=== PATIENT | female | born 1990 | race Caucasian/White ===

== ENCOUNTER → 2017-01-29 | Outpatient (CLI) | payer OTHER ==
--- NOTE | ~2017-01-29 | US98 ---
[facility] A Service of [facility] RADIOLOGY TEXT RESULTS PATIENT: DANIEL MARC LOCATION: [facility] : [birth year] UNIT #: [id number] AGE: [address]: LEONEL GERMAIN MD SEX: F ORDER DR: [id number] [address] [address] [id number] O MR#: [id number] Acc #: [id number] NAME: DANIEL MARC : 1990 SEX: F STUDY DATE/TIME: 01/29/2017 12:47 UNIT: [facility] ROOM: STUDY DESCRIPTION: US Pelvic Non-OB Complete Attending Physician: Gabrielle Germain M.D. Referring Physician: Gabrielle Germain M.D. Ordering Physician: Gabrielle Germain M.D. Primary Care Physician: Gabrielle Germain M.D. MEDICAL IMAGING REPORT This report is preliminary unless electronic signature is present. EXAM Ultrasound pelvis, 01/29/2017. HISTORY 26-year-old female referred for a history of intermittent left side pelvic pain and irregular menses. Symptoms for 1-2 years. TECHNIQUE Pelvic ultrasound examination was performed transabdominally and endovaginally. FINDINGS Retroverted uterus is normal in size and appearance measuring 8.5 x 4.6 x 5.0 cm. No uterine mass is demonstrated, and premenopausal endometrium is normal. Both ovaries are normal in size and appearance. Right ovary 2.7 x 1.8 x 4.6 cm. Left ovary 3.3 x 1.9 x 4.5 cm. Normal physiologic follicles are present within each ovary, and the dominant benign physiologic cyst in the left ovary measures 2.4 cm. No suspicious adnexal region mass or significant free pelvic fluid. Limited Doppler evaluation documents bilateral ovary blood flow. IMPRESSION Normal pelvic ultrasound examination. Dictated by... Castro Horn M.D. [facility] A Service of [facility] RADIOLOGY TEXT RESULTS PATIENT: DANIEL MARC LOCATION: [facility] : [birth year] UNIT #: [id number] AGE: [address]: LEONEL GERMAIN MD SEX: F ORDER DR: THIS IS AN ELECTRONICALLY VERIFIED REPORT Castro Horn M.D. at 01/29/2017 11:07 PM KRISTYNW/diana TD: 01/29/2017 21:24 JOB #: [id number] MEDICAL IMAGING REPORT Page 1 of 1
== END | disposition home or self-care (01) ==
LOC: SGUS 01-17 10:30
DX: N92.6 Irregular menstruation, unspecified (principal)
CPT/HCPCS: 76830; 76856